=== PATIENT | female | born 1975 | race Caucasian/White ===

== ENCOUNTER → 2016-11-28 | Outpatient (REF) | payer OTHER ==
[~2016-11-28] MED LIST: IRON325T3 PO; MULTCAP PO; [UNRECOGNIZED DRUG - CODE] PO; [UNRECOGNIZED DRUG - OTHER] PO
[2016-11-29 14:35] LABS: %CD3+CD4+CD8+ 0.7 % (Not Estab.); %CD3+CD4+CD8- 31.7 % (Not Estab.); %CD3+CD4-CD8+ 50.1 % (Not Estab.); %CD3+CD4-CD8- 1.3 % (Not Estab.); ABS CD3+CD4+CD8+ 20 /uL (Not Estab.); ABS CD3+CD4+CD8- 919 /uL (Not Estab.); ABS CD3+CD4-CD8+ 1453 /uL (Not Estab.); ABS CD3+CD4-CD8- 38 /uL (Not Estab.); CD4/CD8 NYSDOH RATIO 0.63 (Not Estab.); Eosinophils 3 % (.); HCT 33.1 % (34.0-46.6); Monocytes 9 % (.); Neutrophils 41 % (.); WBC 6.3 x10E3/uL (3.4-10.8)
== END ==
LOC: M SFHCPLAZ 09:39
PROVIDERS: ATTEND Internal Medicine Infectious Disease
DX: B20 Human immunodeficiency virus [HIV] disease (principal)

== ENCOUNTER → 2017-05-24 | Outpatient (REF) | payer BC, OTHER ==
[~2017-05-24] MED LIST changes: +ADDE25CA PO; +HYDR25TAB PO; +LAMO100T PO; +SERT50TA PO; +STRITAB2 PO; +VALT500T PO; +VITA1CAP40 PO; +ZOVI5CRE4 TOP
== END ==
LOC: M SFHCPLAZ 11:34
PROVIDERS: ATTEND Internal Medicine Infectious Disease
DX: L73.9 Follicular disorder, unspecified (principal)

== ENCOUNTER → 2017-07-09 | Outpatient (CLI) | payer BC ==
--- NOTE | 2017-07-10 03:49 | REP ---
Clinical: Lower extremity pain with venous insufficiency . Technique: Ramon scale and color Doppler evaluation using linear high frequency transducer with reflux evaluation . Findings: Ultrasound examination of the right and left lower extremity deep venous structures from the common femoral vein to the popliteal vein demonstrates normal compressibility flow and wave patterns in response to respiration and augmentation. There is no evidence for deep venous thrombosis. The patient is noted to be status post bilateral endovenous laser therapy (EVLT) with complete, appropriate occlusion of the bilateral greater saphenous veins. Right lower extremity deep venous system demonstrates mild reflux with standing only including the common femoral vein with a reflux duration of 3.8 seconds, anterior accessory vein distended to 2.3 mm with reflux of 4.9 seconds duration, proximal/mid superficial femoral vein with a reflux duration of 5.8 seconds. Left lower extremity deep venous system demonstrates mild reflux on both standing and supine positioning including common femoral vein with reflux duration of 5.3 seconds, superficial femoral vein with a reflux duration of 4.8 seconds, popliteal vein with reflux duration of 4.2 seconds and lesser saphenous vein distended to 2.7 mm with a duration of 3.7 seconds. Impression: 1. No evidence for deep venous thrombosis. 2. Status post EVLT with complete occlusion of the bilateral greater saphenous veins. 3. Reflux through the bilateral deep venous structures as described above (left greater than right). Signed by Javier Swan MD 07/10/2017 03:40 A
== END ==
LOC: M RAD 11:46
PROVIDERS: ATTEND Surgery Vascular Surgery
DX: I87.2 Venous insufficiency (chronic) (peripheral) (principal)

== ENCOUNTER → 2017-07-09 | Outpatient (CLI) | payer BC ==
[2017-07-09 15:28] LABS: ALBUMIN 3.6 GM/DL (3.2-5.2); ALBUMIN/GLOBULIN RATIO 1.06 (1.00-1.93); ALKALINE PHOSPHATASE 48 U/L (45-117); ALT/SGPT 20 U/L (12-78); ANION GAP 7 MEQ/L (8-16); AST/SGOT 13 U/L (15-37); BILIRUBIN,TOTAL 0.3 MG/DL (0.2-1.0); BLOOD UREA NITROGEN 10 MG/DL (7-18); CARBON DIOXIDE LEVEL 27 MEQ/L (21-32); CHLORIDE LEVEL 105 MEQ/L (98-107); CHOLESTEROL LEVEL 143 MG/DL (<200); CREATININE FOR GFR 0.61 MG/DL (0.55-1.02); GLOMERULAR FILTRATION RATE > 60.0 (>58); GLUCOSE, FASTING 79 MG/DL (70-105); PERCENT SATURATION 2.5 % (13.2-45.0); POTASSIUM SERUM 4.5 MEQ/L (3.5-5.1); SODIUM LEVEL 139 MEQ/L (136-145); TOTAL IRON BINDING CAPACITY 446 UG/DL (250-450); TRIGLYCERIDES LEVEL 123 MG/DL (<150)
[2017-07-09 15:37] LABS: FOLATE 8.6 NG/ML; VITAMIN B12 LEVEL 477 PG/ML
[2017-07-13 00:08] LABS: Eosinophils 1 % (Not Estab.); HCT 32.4 % (34.0-46.6); Monocytes 6 % (Not Estab.); Neutrophils 58 % (Not Estab.); WBC 8.2 x10E3/uL (3.4-10.8)
== END ==
LOC: M LAB 13:58
PROVIDERS: ATTEND Internal Medicine Infectious Disease
DX: B20 Human immunodeficiency virus [HIV] disease (principal)

== ENCOUNTER 2017-08-16 06:25 | Day surgery (SDC) | payer BC ==
[~2017-08-16] VITALS: Ht 170.2 cm; Wt 111.0 kg
[2017-08-16] MEDS ORDERED: LIDOCAINE 1% MDV 20ML VIAL SQ PRN (06:45)
[2017-08-16] MEDS ORDERED: LR 1,000 ML IV ONE (06:45)
[2017-08-16] MEDS ORDERED: LIDOCAINE 1% SDV INJ 30 ML VIAL As Ordered ONE (07:15)
[2017-08-16] MEDS ORDERED: LIDOCAINE W/EPINEPHRINE 1% 20ML VIAL As Ordered ONE (07:16)
[2017-08-16 07:27] LABS: CONTROL LINE UCG INT CTR LINE PRESENT
[2017-08-16] MEDS ORDERED: fentaNYL 100 MCG/2 ML INJECTION (J3010) As Ordered ONE (08:43)
[2017-08-16] MEDS ORDERED: MIDAZOLAM INJ 2 MG/2 ML VIAL (J2250) As Ordered ONE (08:43)
[2017-08-16] MEDS ORDERED: PROPOFOL 200 MG/20 ML VIAL As Ordered ONE (08:43)
[2017-08-16] MEDS ORDERED: LIDOCAINE 2% INJ 100 MG/5 ML SDV (FOR ANES.) As Ordered ONE (08:43)
[2017-08-16] MEDS ORDERED: PROPOFOL 500 MG/50 ML VIAL As Ordered ONE (08:43)
[2017-08-16] MEDS ORDERED: ONDANSETRON 4MG/2ML VIAL (J2405) As Ordered ONE (08:44)
[2017-08-16] MEDS ORDERED: KETOROLAC 60 MG/2 ML VIAL (J1885) As Ordered ONE (08:44)
[2017-08-16] MEDS ORDERED: dexameTHASONE 4 MG/ML 1ML VIAL (J1100) As Ordered ONE (08:44)
[2017-08-16] MEDS ORDERED: HYDROmorphone HCL 2 MG/ML 1ML VIAL (J1170) As Ordered ONE (09:22)
[2017-08-16] MEDS ORDERED: PERCOCET 5MG/325MG TAB As Ordered ONE (09:47)
[2017-08-16] MEDS ORDERED: PERCOCET 5MG/325MG TAB PO PRN (10:00)
[2017-08-16] MEDS ORDERED: ONDANSETRON 4MG/2ML VIAL (J2405) IV PRN (10:00)
[2017-08-16] MEDS ORDERED: LR 1,000 ML IV SCH (10:00)
[2017-08-16] MEDS ORDERED: METOCLOPRAMIDE INJ 10MG/2ML VIAL (J2765) IV PRN (10:00)
[2017-08-16] MEDS ORDERED: KETAMINE HCL 200 MG/20 ML VIAL As Ordered ONE (11:24)
[2017-08-16 13:15] VITALS: BP 147/82
--- NOTE | 2017-08-17 12:56 | ECGEPIP ---
Stationary ECG Study [facility] Test Date: 2017-08-16 Pat Name: EMMANUEL QUIGLEY Department: Room: - Gender: F Head Of Conservation: MONIQUE : 1975 Requested By: Tobin Sims Order Number: [id number] Reading MD: Farzad Jackson Measurements Intervals Steens Rate: 72 P: 52 OR: 143 QRS: 12 QRSD: 108 T: 41 QT: 394 QTc: 434 Interpretive Statements SINUS RHYTHM No prior tracing for comparison Electronically Signed On 08-17-2017 12:55:36 EST by Farzad Jackson
--- NOTE | 2017-09-20 14:37 | RO ---
DATE OF PROCEDURE: 08/16/2017 PREOPERATIVE DIAGNOSIS: Bilateral lower extremity varicose veins with pain. POSTOPERATIVE DIAGNOSIS: Bilateral lower extremity varicose veins with pain. PROCEDURE: Right lower extremity varicose vein stab phlebectomy with greater than 20 stab phlebectomies. SURGEON: Dr. Tanya Waters [employer] HEAD: None. ANESTHESIA: Local monitored anesthesia care (MAC). ESTIMATED BLOOD LOSS: 100 mL. IV FLUIDS: 600 mL. SPECIMEN: Right lower extremity varicose veins. COMPLICATIONS: None. DRAINS: None. IMPLANTS: None. INDICATION: The patient is a 41-year-old female with bilateral lower extremity varicose veins and venous valvular insufficiency who has previously undergone bilateral lower extremity greater saphenous vein radiofrequency ablation, but continues to have symptomatic painful varicose veins in the right and left lower extremities with swelling and pain especially with standing. Patient will undergo stab phlebectomy of the painful varicose veins in the right lower extremity. The risks, benefits and alternative treatment options were discussed with the patient. DESCRIPTION OF PROCEDURE: The patient was taken to the operating room after having marked the varicose veins in the right lower extremity while in the standing position in the preoperative holding area. The patient was then prepped and draped in the standard surgical fashion and greater than 20 stab phlebectomies were performed with removal of varicose veins which were passed for pathological evaluation. The stab phlebectomy sites were closed using levon. Dressings were then applied. The patient tolerated the procedure well. All the instrument, sponge and needle counts were correct at the end of the case. There were no complications. Dr. Waters was present for and directed the entire case. The patient was transferred to the recovery room and subsequently discharged in stable condition.
== END 2017-08-16 13:20 | disposition home or self-care (01) ==
LOC: M SDC 06:25
PROVIDERS: ATTEND Surgery Vascular Surgery
DX: I83.813 Varicose veins of bilateral lower extremities with pain (principal); I10 Essential (primary) hypertension; T88.59XD Other complications of anesthesia, subsequent encounter; R60.0 Localized edema; K58.9 Irritable bowel syndrome, unspecified; D64.9 Anemia, unspecified; B20 Human immunodeficiency virus [HIV] disease; M51.9 Unspecified thoracic, thoracolumbar and lumbosacral intervertebral disc disorder; F32.9 Major depressive disorder, single episode, unspecified; R51 Headache; G47.30 Sleep apnea, unspecified; Z88.5 Allergy status to narcotic agent; Z79.899 Other long term (current) drug therapy; Z87.440 Personal history of urinary (tract) infections; Z98.84 Bariatric surgery status; Z98.51 Tubal ligation status
CPT/HCPCS: 37766; 84703; 88300; 93005; J1100; J1170; J1885; J2250; J2405; J3010

== ENCOUNTER → 2018-10-21 | Outpatient (REF) | payer BC ==
[~2018-10-21] MED LIST changes: -VITA1CAP40 PO; +VITA50005 PO
== END ==
LOC: M SFHCPLAZ 14:48
PROVIDERS: ATTEND Internal Medicine Infectious Disease
DX: D50.9 Iron deficiency anemia, unspecified (principal); Z98.84 Bariatric surgery status; Z53.20 Procedure and treatment not carried out because of patient's decision for unspecified reasons

== ENCOUNTER → 2018-12-19 | Outpatient (REF) | payer BC ==
[2018-12-19 12:13] LABS: APPEARANCE, URINE HAZY (CLEAR); BACTERIA, URINE AUTO NEGATIVE (NEGATIVE); BILIRUBIN, URINE AUTO 1+ (NEGATIVE); BLOOD, URINE BLOOD NEGATIVE (NEGATIVE); COLOR, URINE AMBER (YELLOW); GLUCOSE, URINE (UA) AUTO NEGATIVE (NEGATIVE); KETONE, URINE AUTO TRACE mg/dL (NEGATIVE); LEUKOCYTE ESTERASE, URINE AUTO NEGATIVE (NEGATIVE); MUCUS, URINE SMALL (NEGATIVE); NITRITE, URINE AUTO NEGATIVE (NEGATIVE); PROTEIN, URINE AUTO 1+ mg/dL (NEGATIVE); RBC, URINE AUTO 2 /HPF (0-3); SPECIFIC GRAVITY URINE AUTO 1.034 (1.002-1.035); SQUAMOUS EPITHELIAL CELL UR AU 0 /HPF (0-6); WBC, URINE AUTO 2 /HPF (0-3)
[2018-12-19 12:39] LABS: ALBUMIN 3.6 GM/DL (3.2-5.2); ALT/SGPT 23 U/L (12-78); BILIRUBIN,TOTAL 0.5 MG/DL (0.2-1.0); BLOOD UREA NITROGEN 7 MG/DL (7-18); CALCIUM LEVEL 8.7 MG/DL (8.5-10.1); CARBON DIOXIDE LEVEL 29 MEQ/L (21-32); CHLORIDE LEVEL 104 MEQ/L (98-107); CHOLESTEROL LEVEL 133 MG/DL (<200); CHOLESTEROL RISK RATIO 3.022 (<5); CREATININE FOR GFR 0.67 MG/DL (0.55-1.30); GLOMERULAR FILTRATION RATE > 60.0 (>58); GLUCOSE, FASTING 81 MG/DL (70-100); HDL CHOLESTEROL 44 MG/DL (>40); IRON (FE) 16 UG/DL (50-170); LDL CHOLESTEROL 68 MG/DL (<100); NON-HDL-C 89 MG/DL; PERCENT SATURATION 3.7 % (13.2-45.0); POTASSIUM SERUM 3.7 MEQ/L (3.5-5.1); SODIUM LEVEL 139 MEQ/L (136-145); TOTAL IRON BINDING CAPACITY 433 UG/DL (250-450); TOTAL PROTEIN 6.9 GM/DL (6.4-8.2); TRIGLYCERIDES LEVEL 107 MG/DL (<150)
[2018-12-19 12:50] LABS: TOTAL 25(OH) VITAMIN D 23.3 NG/ML (30.0-100.0)
[2018-12-19 14:14] LABS: CHLAMYDIA DNA AMPLIFICATION NEGATIVE (NEGATIVE); GC DNA AMPLIFICATION NEGATIVE (NEGATIVE)
[2018-12-24 00:06] LABS: % CD8 Pos Lymph 57.7 % (12.0-35.5); %CD4 Pos Lymphs 24.6 % (30.8-58.5); ABS Eosinophils 0.1 x10E3/uL (0.0-0.4); ABS Lymphs 3.5 x10E3/uL (0.7-3.1); ABS Monocytes 0.8 x10E3/uL (0.1-0.9); ABS Neutophils 3.5 x10E3/uL (1.4-7.0); Abs CD4 Helper 861 /uL (359-1519); Abs CD8 Suppres 2020 /uL (109-897); CD4/CD8 Ratio 0.43 (0.92-3.72); Eosinophils 2 % (Not Estab.); HCT 31.1 % (34.0-46.6); HGB 8.7 g/dL (11.1-15.9); HIV-1 RNA PCR QUANT 2 LC550285 110 copies/mL (.); HIV-1 RNA PCR QUANT 3 LC550285 2.041 (.); Immature Grans 0 % (Not Estab.); Lymphocytes 44 % (Not Estab.); MCH 17.6 pg (26.6-33.0); MCV 63 fL (79-97); Monocytes 10 % (Not Estab.); Neutrophils 44 % (Not Estab.); Platelets 389 x10E3/uL (150-379); RBC 4.95 x10E6/uL (3.77-5.28); RDW 19.2 % (12.3-15.4); WBC 7.9 x10E3/uL (3.4-10.8)
== END ==
LOC: M SFHCPLAZ 10:17
PROVIDERS: ATTEND Internal Medicine Infectious Disease
DX: B20 Human immunodeficiency virus [HIV] disease (principal); Z98.84 Bariatric surgery status; D50.9 Iron deficiency anemia, unspecified

== ENCOUNTER → 2020-01-15 | Outpatient (CLI) | payer OTHER ==
[~2020-01-15] MED LIST changes: -LAMO100T PO; +LAMO100T3 PO; +SERT-141 PO; -SERT50TA PO
== END ==
LOC: M LABSMTC 11:06
PROVIDERS: ATTEND Family Medicine
DX: Z11.59 Encounter for screening for other viral diseases (principal); Z20.828 Contact with and (suspected) exposure to other viral communicable diseases

== ENCOUNTER → 2021-02-22 | Outpatient (REF) | payer OTHER ==
[~2021-02-22] MED LIST changes: +HYDR-3490 PO; -HYDR25TAB PO
[2021-02-22 15:43] LABS: APPEARANCE, URINE HAZY (CLEAR); BACTERIA, URINE AUTO 2+ (NEGATIVE); BILIRUBIN, URINE AUTO NEGATIVE (NEGATIVE); BLOOD, URINE BLOOD 1+ (NEGATIVE); COLOR, URINE AMBER (YELLOW); GLUCOSE, URINE (UA) AUTO NEGATIVE (NEGATIVE); KETONE, URINE AUTO NEGATIVE (NEGATIVE); LEUKOCYTE ESTERASE, URINE AUTO TRACE (NEGATIVE); MUCUS, URINE SMALL (NEGATIVE); NITRITE, URINE AUTO POSITIVE (NEGATIVE); PROTEIN, URINE AUTO 1+ mg/dL (NEGATIVE); RBC, URINE AUTO 4 /HPF (0-3); SPECIFIC GRAVITY URINE AUTO 1.025 (1.002-1.035); SQUAMOUS EPITHELIAL CELL UR AU 1 /HPF (0-6); UROBILINOGEN, URINE AUTO 0.2 mg/dL (0.0-2.0); WBC, URINE AUTO 15 /HPF (0-3)
[2021-02-22 16:17] LABS: ALBUMIN 3.8 GM/DL (3.2-5.2); ALT/SGPT 23 U/L (12-78); BILIRUBIN,TOTAL 0.4 MG/DL (0.2-1.0); BLOOD UREA NITROGEN 8 MG/DL (7-18); CARBON DIOXIDE LEVEL 26 MEQ/L (21-32); CHLORIDE LEVEL 107 MEQ/L (98-107); CHOLESTEROL LEVEL 149 MG/DL (<200); FOLLICLE STIMULATING HORMONE 21.4 mIU/mL; FREE T4 1.12 NG/DL (0.76-1.46); GLOMERULAR FILTRATION RATE > 60.0 (>58); GLUCOSE, FASTING 91 MG/DL (70-100); HDL CHOLESTEROL 49 MG/DL (>40); IRON (FE) 20 UG/DL (50-170); LDL CHOLESTEROL 78 MG/DL (<100); LUTEINIZING HORMONE 12.3 mIU/mL; NON-HDL-C 100 MG/DL; PERCENT SATURATION 4.5 % (13.2-45.0); POTASSIUM SERUM 3.7 MEQ/L (3.5-5.1); SODIUM LEVEL 141 MEQ/L (136-145); TOTAL 25(OH) VITAMIN D 35.7 NG/ML (30.0-100.0); TOTAL IRON BINDING CAPACITY 449 UG/DL (250-450); TOTAL PROTEIN 7.2 GM/DL (6.4-8.2); TRIGLYCERIDES LEVEL 111 MG/DL (<150)
[2021-02-22 16:33] LABS: HEMOGLOBIN A1c 5.1 %
[2021-02-24 17:14] LABS: % CD8 Pos Lymph 45.5 % (12.0-35.5); %CD4 Pos Lymphs 37.3 % (30.8-58.5); ABS Basophils 0.1 x10E3/uL (0.0-0.2); ABS Eosinophils 0.1 x10E3/uL (0.0-0.4); ABS Monocytes 0.5 x10E3/uL (0.1-0.9); ABS Neutophils 4.1 x10E3/uL (1.4-7.0); Abs CD4 Helper 1119 /uL (359-1519); Abs CD8 Suppres 1365 /uL (109-897); CD4/CD8 Ratio 0.82 (0.92-3.72); Eosinophils 1 % (Not Estab.); HCT 38.8 % (34.0-46.6); HGB 11.1 g/dL (11.1-15.9); HIV-1 RNA PCR QUANT 2 LC550285 <20 copies/mL (.); Immature Grans 0 % (Not Estab.); Lymphocytes 39 % (Not Estab.); MCH 21.5 pg (26.6-33.0); MCHC 28.6 g/dL (31.5-35.7); MCV 75 fL (79-97); Monocytes 6 % (Not Estab.); Neutrophils 53 % (Not Estab.); Platelets 359 x10E3/uL (150-450); RBC 5.16 x10E6/uL (3.77-5.28); RDW 19.6 % (11.7-15.4); WBC 7.7 x10E3/uL (3.4-10.8)
== END ==
LOC: M SFHCPLAZ 12:58
PROVIDERS: ATTEND Internal Medicine Infectious Disease
DX: B20 Human immunodeficiency virus [HIV] disease (principal); D50.9 Iron deficiency anemia, unspecified; E55.9 Vitamin D deficiency, unspecified; R53.83 Other fatigue; Z97.5 Presence of (intrauterine) contraceptive device; E66.9 Obesity, unspecified

== ENCOUNTER → 2021-04-11 | Outpatient (CLI) | payer OTHER | LOC: M PLALAB 12:42 | PROVIDERS: ATTEND Internal Medicine Infectious Disease | DX: B20 Human immunodeficiency virus [HIV] disease (principal) ==

== ENCOUNTER → 2022-03-27 | Outpatient (CLI) | payer OTHER ==
[2022-03-27 16:26] LABS: ALBUMIN 3.6 GM/DL (3.2-5.2); ALT/SGPT 19 U/L (12-78); BILIRUBIN,TOTAL 0.5 MG/DL (0.2-1.0); BLOOD UREA NITROGEN 10 MG/DL (7-18); CALCIUM LEVEL 9.2 MG/DL (8.5-10.1); CARBON DIOXIDE LEVEL 31 MEQ/L (21-32); CHLORIDE LEVEL 103 MEQ/L (98-107); CREATININE FOR GFR 0.72 MG/DL (0.55-1.30); GLOMERULAR FILTRATION RATE > 60.0 (>58); GLUCOSE, FASTING 63 MG/DL (70-100); POTASSIUM SERUM 4.3 MEQ/L (3.5-5.1); SODIUM LEVEL 138 MEQ/L (136-145); TOTAL PROTEIN 6.5 GM/DL (6.4-8.2)
== END ==
LOC: M PLALAB 13:45
PROVIDERS: ATTEND Internal Medicine Infectious Disease
DX: B20 Human immunodeficiency virus [HIV] disease (principal)

== ENCOUNTER → 2022-05-01 | Outpatient (CLI) | payer OTHER ==
[2022-05-01 16:07] LABS: IRON (FE) 73 UG/DL (50-170); TOTAL IRON BINDING CAPACITY 347 UG/DL (250-450)
[2022-05-01 16:34] LABS: HEPATITIS B SURFACE ANTIBODY NEGATIVE (POSITIVE); TOTAL 25(OH) VITAMIN D 38.2 NG/ML (30.0-100.0)
== END ==
LOC: M PLALAB 13:48
PROVIDERS: ATTEND Internal Medicine Infectious Disease
DX: B20 Human immunodeficiency virus [HIV] disease (principal); D50.9 Iron deficiency anemia, unspecified; E55.9 Vitamin D deficiency, unspecified

== ENCOUNTER → 2022-06-27 | Outpatient (CLI) | payer OTHER ==
[2022-06-27 14:01] LABS: BASO # 0.1 10^3/uL (0.0-0.2); BASO % 0.8 % (0.0-1.0); EOS # 0.1 10^3/uL (0.0-0.5); EOS % 1.6 % (0.0-3.0); HEMATOCRIT 45.8 % (36.0-47.0); HEMOGLOBIN 15.2 g/dl (12.0-15.5); LYMPH # 3.2 10^3/uL (1.5-5.0); LYMPH % 45.1 % (24.0-44.0); MEAN CORPUSCULAR HEMOGLOBIN 29.5 pg (27.0-33.0); MEAN CORPUSCULAR HGB CONC 33.2 g/dl (32.0-36.5); MEAN CORPUSCULAR VOLUME 88.9 fl (80.0-96.0); MONO # 0.5 10^3/uL (0.0-0.8); MONO % 7.4 % (2.0-8.0); NEUTROPHILS # 3.2 10^3/uL (1.5-8.5); NEUTROPHILS % 44.8 % (36.0-66.0); PLATELET COUNT, AUTOMATED 242 10^3/uL (150-450); RED BLOOD COUNT 5.15 10^6/uL (4.00-5.40); WHITE BLOOD COUNT 7.1 10^3/uL (4.0-10.0)
[2022-06-29 05:07] LABS: HIV-1 RNA PCR QUANT 2 LC550285 <20 copies/mL (.)
== END ==
LOC: M PLALAB 11:27
PROVIDERS: ATTEND Internal Medicine Infectious Disease
DX: R21 Rash and other nonspecific skin eruption (principal); B20 Human immunodeficiency virus [HIV] disease

== ENCOUNTER → 2023-09-10 | Outpatient (CLI) | payer OTHER ==
[2023-09-10 15:01] LABS: IRON (FE) 37 UG/DL (50-170)
[2023-09-10 15:02] LABS: PERCENT SATURATION 12.3 % (13.2-45.0); TOTAL IRON BINDING CAPACITY 301 UG/DL (250-425)
[2023-09-10 15:04] LABS: ALBUMIN 3.5 G/DL (3.2-5.2); ALKALINE PHOSPHATASE 45 U/L (46-116); ALT/SGPT 16 U/L (7.0-40); AST/SGOT 17 U/L (<34); BILIRUBIN,TOTAL 0.4 MG/DL (0.3-1.2); BLOOD UREA NITROGEN 15 MG/DL (9-23); CALCIUM LEVEL 8.9 MG/DL (8.5-10.1); CARBON DIOXIDE LEVEL 30 MMOL/L (20-31); CHLORIDE LEVEL 103 MMOL/L (98-107); CHOLESTEROL LEVEL 148 MG/DL (<200); CHOLESTEROL RISK RATIO 3.03 (<5); CREATININE FOR GFR 0.68 MG/DL (0.55-1.30); GLOMERULAR FILTRATION RATE > 60.0 (>58); GLUCOSE, FASTING 72 MG/DL (60-100); HDL CHOLESTEROL 48.8 MG/DL (>40); LDL CHOLESTEROL 83.2 MG/DL (<100); NON-HDL-C 99.2 MG/DL; POTASSIUM SERUM 4.2 MMOL/L (3.5-5.1); SODIUM LEVEL 138 MMOL/L (136-145); TOTAL PROTEIN 6.4 G/DL (5.7-8.2); TRIGLYCERIDES LEVEL 80 MG/DL (<150)
[2023-09-10 15:08] LABS: TOTAL 25(OH) VITAMIN D 35.2 NG/ML (20.0-100.0)
[2023-09-11 14:09] LABS: %CD4 Pos Lymphs 40.2 % (30.8-58.5); ABS Basophils 0.1 x10E3/uL (0.0-0.2); ABS Eosinophils 0.1 x10E3/uL (0.0-0.4); ABS Lymphs 3.2 x10E3/uL (0.7-3.1); ABS Monocytes 0.6 x10E3/uL (0.1-0.9); ABS Neutophils 4.1 x10E3/uL (1.4-7.0); Abs CD4 Helper 1286 /uL (359-1519); Abs CD8 Suppres 1440 /uL (109-897); CD4/CD8 Ratio 0.89 (0.92-3.72); Eosinophils 2 % (Not Estab.); HCT 43.3 % (34.0-46.6); HGB 14.8 g/dL (11.1-15.9); HIV-1 RNA PCR QUANT 2 LC550285 <20 copies/mL (.); HSV TYPE II IgG SPECIFIC 7.81 index (0.00-0.90); Immature Grans 0 % (Not Estab.); Lymphocytes 40 % (Not Estab.); MCH 30.5 pg (26.6-33.0); MCHC 34.2 g/dL (31.5-35.7); MCV 89 fL (79-97); Monocytes 7 % (Not Estab.); Neutrophils 50 % (Not Estab.); Platelets 258 x10E3/uL (150-450); RBC 4.85 x10E6/uL (3.77-5.28)
== END ==
LOC: M PLALAB 12:11
PROVIDERS: ATTEND Internal Medicine Infectious Disease
DX: D50.9 Iron deficiency anemia, unspecified (principal); B00.9 Herpesviral infection, unspecified; B20 Human immunodeficiency virus [HIV] disease; E55.9 Vitamin D deficiency, unspecified; E66.01 Morbid (severe) obesity due to excess calories; Z23 Encounter for immunization

== ENCOUNTER → 2024-03-11 | Outpatient (CLI) | payer OTHER ==
[2024-03-11 15:31] LABS: APPEARANCE, URINE CLEAR (CLEAR); BACTERIA, URINE AUTO NEGATIVE (NEGATIVE); BILIRUBIN, URINE AUTO NEGATIVE (NEGATIVE); BLOOD, URINE BLOOD 1+ (NEGATIVE); COLOR, URINE YELLOW (YELLOW); GLUCOSE, URINE (UA) AUTO NEGATIVE (NEGATIVE); KETONE, URINE AUTO NEGATIVE (NEGATIVE); LEUKOCYTE ESTERASE, URINE AUTO NEGATIVE (NEGATIVE); NITRITE, URINE AUTO NEGATIVE (NEGATIVE); PROTEIN, URINE AUTO NEGATIVE (NEGATIVE); RBC, URINE AUTO 0 /HPF (0-3); SPECIFIC GRAVITY URINE AUTO 1.016 (1.002-1.035); SQUAMOUS EPITHELIAL CELL UR AU 2 /HPF (0-6); UROBILINOGEN, URINE AUTO 0.2 mg/dL (0.0-2.0); WBC, URINE AUTO 1 /HPF (0-3)
[2024-03-11 16:03] LABS: C REACTIVE PROTEIN QUANTITATIV < 0.40 MG/DL (<1.0)
[2024-03-11 16:04] LABS: ALBUMIN 3.8 G/DL (3.2-5.2); ALKALINE PHOSPHATASE 47 U/L (46-116); ALT/SGPT 18 U/L (7.0-40); AST/SGOT 13 U/L (<34); BILIRUBIN,TOTAL 0.4 MG/DL (0.3-1.2); BLOOD UREA NITROGEN 13 MG/DL (9-23); CALCIUM LEVEL 9.6 MG/DL (8.5-10.1); CARBON DIOXIDE LEVEL 30 MMOL/L (20-31); CHLORIDE LEVEL 104 MMOL/L (98-107); GLOMERULAR FILTRATION RATE > 60.0 (>58); GLUCOSE, FASTING 77 MG/DL (60-100); POTASSIUM SERUM 4.3 MMOL/L (3.5-5.1); SODIUM LEVEL 137 MMOL/L (136-145); TOTAL PROTEIN 6.7 G/DL (5.7-8.2)
[2024-03-11 16:35] LABS: RHEUMATOID FACTOR QUANT 11.4 IU/ML (<14)
[2024-03-11 17:20] LABS: GC DNA AMPLIFICATION NEGATIVE (NEGATIVE)
[2024-03-12 15:05] LABS: IgG P18 AB NON-REACTIVE; IgG P23 AB NON-REACTIVE; IgG P28 AB NON-REACTIVE; IgG P30 AB NON-REACTIVE; IgG P39 AB REACTIVE; IgG P41 AB REACTIVE; IgG P45 AB NON-REACTIVE; IgG P58 AB REACTIVE; IgG P66 AB NON-REACTIVE; IgG P93 AB NON-REACTIVE; IgM P23 AB NON-REACTIVE; IgM P39 AB NON-REACTIVE; IgM P41 AB NON-REACTIVE; LYME IgG WB INTERPRETATION NEGATIVE (NEGATIVE); LYME IgM WB INTERPRETATION NEGATIVE (NEGATIVE)
[2024-03-12 15:28] LABS: ANA PATTERN Nuclear, Speckled (NEGATIVE); ANA SCREEN, IFA POSITIVE (NEGATIVE); ANA TITER 1:40 titer (<1:40)
[2024-03-12 16:10] LABS: % CD4+ LYMPHS 42.1 % (30.8-58.5); ABSOLUTE CD4 HELPER 1221 /uL (359-1519); BASOPHILS 1 % (Not Estab.); EOSINOPHILS 1 % (Not Estab.); EOSINOPHILS ABSOLUTE 0.1 x10E3/uL (0.0-0.4); HCT 44.6 % (34.0-46.6); HGB 14.7 g/dL (11.1-15.9); LYMPHOCYTES 36 % (Not Estab.); LYMPHOCYTES ABSOLUTE 2.9 x10E3/uL (0.7-3.1); MCH 30.3 pg (26.6-33.0); MCV 92 fL (79-97); MONOCYTES 8 % (Not Estab.); MONOCYTES ABSOLUTE 0.6 x10E3/uL (0.1-0.9); NEUTROPHILS 54 % (Not Estab.); NEUTROPHILS ABSOLUTE 4.3 x10E3/uL (1.4-7.0); PLT 256 x10E3/uL (150-450); RBC 4.85 x10E6/uL (3.77-5.28); WBC 7.8 x10E3/uL (3.4-10.8)
[2024-03-13 01:57] LABS: CYCLIC CITRULLINATED PEPTIDE < 16 UNITS (<20)
[2024-03-13 18:41] LABS: HIV-1 RNA PCR QUANT 2 NOT DETECTED copies/mL (NOT DETECTED); HIV-1 RNA PCR QUANT 3 NOT DETECTED (NOT DETECTED)
== END ==
LOC: M PLALAB 12:36
PROVIDERS: ATTEND Internal Medicine Infectious Disease
DX: B20 Human immunodeficiency virus [HIV] disease (principal); Z11.3 Encounter for screening for infections with a predominantly sexual mode of transmission; M25.551 Pain in right hip

== ENCOUNTER → 2024-06-16 | Outpatient (CLI) | payer OTHER | LOC: M PLAIMG 11:13 | PROVIDERS: ATTEND Otolaryngology | DX: J32.0 Chronic maxillary sinusitis (principal); J34.1 Cyst and mucocele of nose and nasal sinus ==

== ENCOUNTER → 2024-09-29 | Outpatient (REF) | payer OTHER | LOC: M SFHCPLAZ 09:47 | PROVIDERS: ATTEND Nurse Practitioner Family | DX: R09.89 Other specified symptoms and signs involving the circulatory and respiratory systems (principal) ==

== ENCOUNTER → 2024-12-02 | Outpatient (CLI) | payer OTHER ==
[2024-12-04 13:48] LABS: HIV-1 RNA PCR QUANT 2 NOT DETECTED copies/mL (NOT DETECTED); HIV-1 RNA PCR QUANT 3 NOT DETECTED (NOT DETECTED)
[2024-12-04 16:07] LABS: % CD4+ LYMPHS 43.7 % (30.8-58.5); ABSOLUTE CD4 HELPER 1442 /uL (359-1519); BASOPHILS 1 % (Not Estab.); BASOPHILS ABSOLUTE 0.1 x10E3/uL (0.0-0.2); EOSINOPHILS 2 % (Not Estab.); EOSINOPHILS ABSOLUTE 0.1 x10E3/uL (0.0-0.4); HCT 44.7 % (34.0-46.6); HGB 14.7 g/dL (11.1-15.9); Immature Grans 0 % (Not Estab.); LYMPHOCYTES 41 % (Not Estab.); LYMPHOCYTES ABSOLUTE 3.3 x10E3/uL (0.7-3.1); MCH 30.8 pg (26.6-33.0); MCHC 32.9 g/dL (31.5-35.7); MCV 94 fL (79-97); MONOCYTES 6 % (Not Estab.); MONOCYTES ABSOLUTE 0.5 x10E3/uL (0.1-0.9); NEUTROPHILS 50 % (Not Estab.); NEUTROPHILS ABSOLUTE 4.1 x10E3/uL (1.4-7.0); PLT 259 x10E3/uL (150-450); RBC 4.78 x10E6/uL (3.77-5.28); RDW 14.1 % (11.7-15.4); WBC 8.2 x10E3/uL (3.4-10.8)
== END ==
LOC: M PLALAB 14:27
PROVIDERS: ATTEND Internal Medicine Infectious Disease
DX: B20 Human immunodeficiency virus [HIV] disease (principal)

== ENCOUNTER → 2024-12-02 | Outpatient (CLI) | payer OTHER ==
[2024-12-02 20:50] LABS: TOTAL IRON BINDING CAPACITY 316 UG/DL (250-425)
[2024-12-02 20:51] LABS: IRON (FE) 88 UG/DL (50-170); PERCENT SATURATION 27.8 % (13.2-45.0)
[2024-12-02 20:53] LABS: FREE T4 1.14 NG/DL (0.89-1.76); THYROID STIMULATING HORMONE 2.494 uIU/ML (0.55-4.78)
[2024-12-02 21:06] LABS: BASO # 0.1 10^3/uL (0.0-0.2); BASO % 0.6 % (0.0-1.0); EOS # 0.1 10^3/uL (0.0-0.5); EOS % 1.6 % (0.0-3.0); HEMATOCRIT 44.3 % (36.0-47.0); HEMOGLOBIN 14.7 g/dl (12.0-15.5); LYMPH # 3.3 10^3/uL (1.5-5.0); MEAN CORPUSCULAR HEMOGLOBIN 30.8 pg (27.0-33.0); MEAN CORPUSCULAR HGB CONC 33.2 g/dl (32.0-36.5); MEAN CORPUSCULAR VOLUME 92.7 fl (80.0-96.0); MONO # 0.6 10^3/uL (0.0-0.8); MONO % 7.5 % (2.0-8.0); NEUTROPHILS % 49.1 % (36.0-66.0); PLATELET COUNT, AUTOMATED 269 10^3/uL (150-450); RED BLOOD COUNT 4.78 10^6/uL (4.00-5.40); WHITE BLOOD COUNT 8.1 10^3/uL (4.0-10.0)
[2024-12-02 21:39] LABS: ALBUMIN 3.6 G/DL (3.2-5.2); ALKALINE PHOSPHATASE 46 U/L (35-104); ALT/SGPT 27 U/L (7.0-40); AST/SGOT 24 U/L (<34); BILIRUBIN,TOTAL 0.5 MG/DL (0.3-1.2); BLOOD UREA NITROGEN 12 MG/DL (9-23); CARBON DIOXIDE LEVEL 30 MMOL/L (20-31); CHLORIDE LEVEL 106 MMOL/L (98-107); CHOLESTEROL LEVEL 160 MG/DL (<200); CHOLESTEROL RISK RATIO 3.23 (<5); CREATININE FOR GFR 0.86 MG/DL (0.55-1.30); GLOMERULAR FILTRATION RATE > 60.0 (>58); GLUCOSE, FASTING 79 MG/DL (60-100); HDL CHOLESTEROL 49.5 MG/DL (>40); LDL CHOLESTEROL 84.7 MG/DL (<100); NON-HDL-C 110.5 MG/DL; POTASSIUM SERUM 3.8 MMOL/L (3.5-5.1); SODIUM LEVEL 142 MMOL/L (136-145); TRIGLYCERIDES LEVEL 129 MG/DL (<150)
[2024-12-05 15:43] LABS: ANA SCREEN, IFA NEGATIVE (NEGATIVE)
[2024-12-05 18:07] LABS: LYME TOTAL ANTIBODY CIA <= 0.90 Index (<=0.90)
== END ==
LOC: M PLALAB 14:29
PROVIDERS: ATTEND Nurse Practitioner Family
DX: D50.9 Iron deficiency anemia, unspecified (principal); I10 Essential (primary) hypertension; R53.83 Other fatigue; Z13.220 Encounter for screening for lipoid disorders; M25.50 Pain in unspecified joint; E55.9 Vitamin D deficiency, unspecified

== ENCOUNTER → 2024-12-02 | Outpatient (CLI) | payer OTHER ==
[2024-12-02 17:17] LABS: INR 0.97; PARTIAL THROMBOPLASTIN TIME 31.4 SECONDS (24.8-34.2); PROTHROMBIN TIME 13.2 SECONDS (12.5-14.5)
[2024-12-02 21:03] LABS: HEMOGLOBIN A1c 4.9 % (4.0-6.0)
[2024-12-02 21:05] LABS: HEMATOCRIT 44.4 % (36.0-47.0); HEMOGLOBIN 14.6 g/dl (12.0-15.5); MEAN CORPUSCULAR HEMOGLOBIN 30.2 pg (27.0-33.0); MEAN CORPUSCULAR HGB CONC 32.9 g/dl (32.0-36.5); MEAN CORPUSCULAR VOLUME 91.7 fl (80.0-96.0); PLATELET COUNT, AUTOMATED 267 10^3/uL (150-450); RED BLOOD COUNT 4.84 10^6/uL (4.00-5.40); WHITE BLOOD COUNT 8.1 10^3/uL (4.0-10.0)
[2024-12-02 21:13] LABS: AMYLASE 42 U/L (30-118); FERRITIN 39.2 NG/ML (7.3-270.7); FREE T4 1.18 NG/DL (0.89-1.76); IRON (FE) 89 UG/DL (50-170); PERCENT SATURATION 28.3 % (13.2-45.0); THYROID STIMULATING HORMONE 2.434 uIU/ML (0.55-4.78); TOTAL IRON BINDING CAPACITY 314 UG/DL (250-425)
[2024-12-02 21:14] LABS: FOLATE 14.8 NG/ML (>5.4)
[2024-12-02 21:16] LABS: VITAMIN B12 LEVEL 582 PG/ML (211-911)
[2024-12-02 21:41] LABS: ALBUMIN 3.7 G/DL (3.2-5.2); ALKALINE PHOSPHATASE 47 U/L (35-104); ALT/SGPT 27 U/L (7.0-40); AST/SGOT 24 U/L (<34); BILIRUBIN,TOTAL 0.5 MG/DL (0.3-1.2); BLOOD UREA NITROGEN 13 MG/DL (9-23); CARBON DIOXIDE LEVEL 26 MMOL/L (20-31); CHLORIDE LEVEL 106 MMOL/L (98-107); CHOLESTEROL LEVEL 160 MG/DL (<200); CREATININE FOR GFR 0.84 MG/DL (0.55-1.30); GLOMERULAR FILTRATION RATE > 60.0 (>58); GLUCOSE, FASTING 78 MG/DL (60-100); LDL CHOLESTEROL 83.6 MG/DL (<100); POTASSIUM SERUM 3.7 MMOL/L (3.5-5.1); SODIUM LEVEL 142 MMOL/L (136-145); TOTAL PROTEIN 7.1 G/DL (5.7-8.2); TRIGLYCERIDES LEVEL 132 MG/DL (<150)
[2024-12-02 21:51] LABS: FREE T3 2.9 PG/ML (2.3-4.2)
[2024-12-08 20:48] LABS: VITAMIN A, RETINOL LEVEL 36 mcg/dL (38-98)
== END ==
LOC: M PLALAB 14:31
PROVIDERS: ATTEND Nurse Practitioner Family
DX: Z13.21 Encounter for screening for nutritional disorder (principal)

== ENCOUNTER → 2024-12-02 | Outpatient (CLI) | payer OTHER | LOC: M WHC 15:04 | PROVIDERS: ATTEND Nurse Practitioner Family | DX: Z12.31 Encounter for screening mammogram for malignant neoplasm of breast (principal); R92.333 Mammographic heterogeneous density, bilateral breasts ==